=== PATIENT | male | born 1995 | race Caucasian/White ===

== ENCOUNTER 2017-03-03 02:57 | Emergency (ER) | payer SELFPAY ==
[~2017-03-03] VITALS: Ht 170.2 cm; Wt 88.0 kg
[2017-03-03 03:01] VITALS: BP 138/76
== END 2017-03-03 06:00 | disposition left against medical advice (07) ==
LOC: ER 02:57
DX: Z53.21 Procedure and treatment not carried out due to patient leaving prior to being seen by health care provider (principal)